=== PATIENT | female | born 1960 | race Caucasian/White ===

== ENCOUNTER 2017-10-21 22:30 | Observation (INO) | payer OTHER, MEDICAID ==
[2017-10-21] MEDS ORDERED: BUSP10TA PO (23:27)
[2017-10-21] MEDS ORDERED: Folic Acid (23:36)
[2017-10-21] MEDS ORDERED: Iron Supplement (23:36)
[2017-10-21] MEDS ORDERED: FLUT1SPR5 EACH NARE (23:36)
[2017-10-21] MEDS ORDERED: PHEN100C PO (23:36)
[2017-10-21] MEDS ORDERED: PALI117P IM (23:36)
[2017-10-21] MEDS ORDERED: PHENO60 PO (23:36)
[2017-10-21] MEDS ORDERED: TOPI100 PO (23:36)
[2017-10-21] MEDS ORDERED: CLAR10CA3 PO (23:36)
[2017-10-21] MEDS ORDERED: FLUT50SP EACH NARE (23:54)
[2017-10-21] MEDS ORDERED: PROM6.254 PO (23:54)
[2017-10-21] MEDS ORDERED: OMEP40CA2 (23:54)
[2017-10-22 01:10] VITALS: BP 133/86; PULSE 91; RESP 20; TEMP 97.4; O2SAT 100
[2017-10-22] MEDS ORDERED: ACETAMINOPHEN/HYDROcodone 325 MG/5 MG TAB PO PRN (01:45)
[2017-10-22] MEDS ORDERED: ACETAMINOPHEN 325 MG TAB PO PRN (01:45)
[2017-10-22] MEDS ORDERED: ONDANSETRON HCL 4 MG/2 ML VIAL IVP PRN (01:45)
[2017-10-22] MEDS ORDERED: SODIUM CHLORIDE 0.9% FLUSH 10 ML FLUSH IV FLUSH PRN (01:45)
[2017-10-22 04:00] VITALS: BP 118/65; PULSE 82; RESP 14; TEMP 98; O2SAT 97
[2017-10-22 06:34] LABS: BASOPHIL % 0.5 % (0.0-2.0); EOSINOPHIL # 0.1 TH/MM3 (0-0.4); EOSINOPHIL % 1.3 % (0.0-4.0); HEMATOCRIT 37.8 % (35.0-46.0); HEMOGLOBIN 12.7 GM/DL (11.6-15.3); LYMPH % 21.1 % (9.0-44.0); LYMPHOCYTE # 1.8 TH/MM3 (1.0-4.8); MEAN CELL VOLUME 91.2 FL (80.0-100.0); MEAN CORPUSCULAR HEMOGLOBIN 30.6 PG (27.0-34.0); MEAN CORPUSCULAR HGB CONC 33.6 % (32.0-36.0); MEAN PLATELET VOLUME 7.2 FL (7.0-11.0); MONO % 7.1 % (0.0-8.0); MONOCYTE # 0.6 TH/MM3 (0-0.9); PLATELET COUNT 273 TH/MM3 (150-450); RED BLOOD COUNT 4.14 MIL/MM3 (4.00-5.30); RED CELL DISTRIBUTION WIDTH 12.3 % (11.6-17.2); WHITE BLOOD COUNT 8.5 TH/MM3 (4.0-11.0)
[2017-10-22 06:43] LABS: CHLORIDE 112 MEQ/L (98-107); SODIUM (NA) 144 MEQ/L (136-145)
[2017-10-22 06:50] LABS: ALBUMIN 3.4 GM/DL (3.4-5.0); BICARBONATE 26.4 MEQ/L (21.0-32.0); CALCIUM 8.7 MG/DL (8.5-10.1); GLUCOSE,RANDOM 91 MG/DL (74-106)
[2017-10-22 06:51] LABS: BLOOD UREA NITROGEN 3 MG/DL (7-18)
[2017-10-22 06:53] LABS: ALT (GPT) 29 U/L (10-53)
[2017-10-22 06:54] LABS: AST (GOT) 11 U/L (15-37); CREATININE 0.51 MG/DL (0.50-1.00); GLOMERULAR FILTRATION RATE 125 ML/MIN (>89)
[2017-10-22 06:55] LABS: TOTAL BILIRUBIN ADULT 0.3 MG/DL (0.2-1.0); TOTAL PROTEIN 7.3 GM/DL (6.4-8.2)
[2017-10-22 06:56] LABS: ALKALINE PHOSPHATASE 166 U/L (45-117)
[2017-10-22] MEDS ORDERED: SODIUM CHLORIDE 0.9% FLUSH 10 ML FLUSH IV FLUSH SCH (09:00)
[2017-10-22] MEDS ORDERED: PANTOPRAZOLE SOD 40 MG DELAYED RELEASE TAB PO SCH (09:15)
[2017-10-22] MEDS ORDERED: TOPIRAMATE 100 MG TAB PO SCH (09:15)
[2017-10-22] MEDS ORDERED: CIPR250T52 PO (09:27)
--- NOTE | 2017-10-22 09:27 | HHI.DCPOC ---
Discharge Care Plan Diagnosis: (1) Urinary tract infection Goals to Promote Your Health * To prevent worsening of your condition and complications * To maintain your health at the optimal level Directions to Meet Your Goals Take your medications as prescribed Follow your dietary instruction Follow activity as directed Keep your appointments as scheduled Take your immunizations and boosters as scheduled If your symptoms worsen call your PCP, if no PCP go to Urgent Care Center or Emergency Room Smoking is Dangerous to Your Health. Avoid second hand smoke Call the 24-hour hour crisis hotline for domestic abuse at Abisai Castro Oct 22, 2017 09:27
--- NOTE | 2017-10-22 09:36 | HHI.HP ---
[facility] Non-Staff Admission Diagnosis Diagnoses: (1) Urinary tract infection Diagnosis: Principal (2) Vomiting Diagnosis: Principal Chief Complaint: Vomiting Travel History International Travel<30 Days: No Contact w/Intl Traveler <30 Da: No History of Present Illness 57-year-old female with known history of gastroesophageal reflux, seizure disorder, bipolar disorder who presented to hospital because of sore throat, vomiting, abdominal pain. Patient was in her normal state of health then she went to her psychiatrist's office yesterday. Then afterwards she started developing a cough in which she coughed until she vomited. Her sister indicates that this happens quite frequently. However she started developing a sore throat and some abdominal discomfort. He went to the emergency department for evaluation and had workup performed which did indicate rather large gallstone without any obstruction, urinary tract infection. Laboratory studies were unremarkable. Patient was recommended observation in the hospital. Upon seeing the patient this morning her symptoms are completely resolved and she is asking to go home. Review of Systems Respiratory: COMPLAINS OF: Cough Gastrointestinal: COMPLAINS OF: Abdominal pain, Vomiting Except as stated in HPI: all other systems reviewed are Neg Past Family Social History Past Medical History Gastroesophageal reflux Seizure disorder Bipolar disorder Past Surgical History Left shoulder surgery Reported Medications Reported Meds & Active Scripts Active Cipro (Ciprofloxacin HCl) 250 Mg Tab 250 Mg PO BID 3 Days Reported Omeprazole 40 Mg Cap 40 Mg DAILY Fluticasone Nasal [place] 50 Mcg/Act Naspr 50 Mcg EACH NARE BID 50 mcg/spray Promethazine Liq (Promethazine HCl) 6.25 Mg/5 Ml Syrp 6.25 Mg PO Q6H PRN [Folic Acid] [Iron Supplement] Claritin (Loratadine) 10 Mg Cap 10 Mg PO DAILY Flonase Nasal [place] (Fluticasone Nasal [place]) 50 Mcg/Act [place] 100 Mcg EACH NARE BID Invega Sustenna Inj (Paliperidone Palmitate) 117 Mg/0.75 Ml Inj 117 Mg IM Q28D Topamax (Topiramate) 100 Mg Tab 100 Mg PO BID Phenytoin Extended 100 Mg Cap 100 Mg PO TID Phenobarbital 64.8 Mg Tab 64.8 Mg PO BID Buspirone (Buspirone HCl) 10 Mg Tab 10 Mg PO TID Allergies: Coded Allergies: No Known Allergies (Verified Allergy, Unknown, 10/22/17) Family History Review significant for mother with diabetes and Alzheimer's. Father with diabetes Social History Patient denies any tobacco, alcohol or illicit drug Physical Exam Vital Signs Vital Signs Date Time Temp Pulse Resp B/P (MAP) Pulse Ox O2 Delivery O2 Flow Rate FiO2 10/22/17 04:00 98.0 82 14 118/65 (82) 97 10/22/17 01:10 97.4 91 20 133/86 (102) 100 Physical Exam GENERAL: Well-developed, well-nourished, in no acute distress. alert and orientated HEENT: Head is normocephalic without any lesions or masses noted. Facial features are symmetric. Eyes: Pupils equal round reactive to light. Extraocular muscles are intact. Conjunctivae were clear. Oropharyngeal: Pharynx without any erythema edema. Tongue is midline without deviation. Buccal mucosa is moist without any masses or lesions NECK: Supple without any masses. Trachea midline no deviation. No JVD, no bruits are appreciated CARDIAC: Regular rhythm, regular rate. S1/S2 are heard. No murmurs gallops or rubs. LUNGS: Clear to auscultation bilaterally. No wheeze, rhonchi or rales. No use of accessory muscles on inspiration or expiration. ABDOMEN: Soft, nontender. Nondistended. Bowel sounds heard in all 4 quadrants. No organomegaly or masses. Negative rebound, negative guarding EXTREMITIES: No edema, pulses are equal bilaterally. No cyanosis or clubbing NEUROLOGY: Mood and affect appear appropriate. Cranial nerves II through XII grossly intact. Muscle strength 5/5 in upper and lower extremities bilaterally. Deep tendon reflexes are 2+ in upper and lower extremities bilaterally. Laboratory Laboratory Tests Test 10/22/17 05:53 White Blood Count 8.5 Red Blood Count 4.14 Hemoglobin 12.7 Hematocrit 37.8 Mean Corpuscular Volume 91.2 Mean Corpuscular Hemoglobin 30.6 Mean Corpuscular Hemoglobin Concent 33.6 Red Cell Distribution Width 12.3 Platelet Count 273 Mean Platelet Volume 7.2 Neutrophils (%) (Auto) 70.0 Lymphocytes (%) (Auto) 21.1 Monocytes (%) (Auto) 7.1 Eosinophils (%) (Auto) 1.3 Basophils (%) (Auto) 0.5 Neutrophils # (Auto) 6.0 Lymphocytes # (Auto) 1.8 Monocytes # (Auto) 0.6 Eosinophils # (Auto) 0.1 Basophils # (Auto) 0.0 CBC Comment DIFF FINAL Differential Comment Blood Urea Nitrogen 3 Creatinine 0.51 Random Glucose 91 Total Protein 7.3 Albumin 3.4 Calcium Level 8.7 Alkaline Phosphatase 166 Aspartate Amino Transf (AST/SGOT) 11 Alanine Aminotransferase (ALT/SGPT) 29 Total Bilirubin 0.3 Sodium Level 144 Potassium Level 3.9 Chloride Level 112 Carbon Dioxide Level 26.4 Anion Gap 6 Estimat Glomerular Filtration Rate 125 Result Diagram: 10/22/17 0553 10/22/17 0553 Caprini VTE Risk Assessment Caprini VTE Risk Assessment: No/Low Risk (score <= 1) Caprini Risk Assessment Model Point Value = 1 Point Value = 2 Point Value = 3 Point Value = 5 Age 41-60 Minor surgery BMI > 25 kg/m2 Swollen legs Varicose veins or History of unexplained or recurrent spontaneous Oral contraceptives or hormone replacement Sepsis (< 1 month) Serious lung disease, including pneumonia (< 1 month) Abnormal pulmonary function Acute myocardial infarction Congestive heart failure (< 1 month) History of inflammatory bowel disease Medical patient at bed rest Age 61-74 Arthroscopic surgery Major open surgery (> 45 min) Laparoscopic surgery (> 45 min) Malignancy Confined to bed (> 72 hours) Immobilizing plaster cast Central venous access Age >= 75 History of VTE Family history of VTE Factor V Leiden Prothrombin [id number] Lupus anticoagulant Anticardiolipin antibodies Elevated serum homocysteine Heparin-induced thrombocytopenia Other congenital or acquired thrombophilia Stroke (< 1 month) Elective arthroplasty Hip, pelvis, or leg fracture Acute spinal cord injury (< 1 month) Prophylaxis Regimen Total Risk Factor Score Risk Level Prophylaxis Regimen 0-1 Low Early ambulation 2 Moderate Order ONE of the following: *Sequential Compression Device (SCD) *Heparin 5000 units SQ BID 3-4 Higher Order ONE of the following medications: *Heparin 5000 units SQ TID *Enoxaparin/Lovenox 40 mg SQ daily (WT < 150 kg, CrCl > 30 mL/min) *Enoxaparin/Lovenox 30 mg SQ daily (WT < 150 kg, CrCl > 10-29 mL/min) *Enoxaparin/Lovenox 30 mg SQ BID (WT < 150 kg, CrCl > 30 mL/min) AND/OR *Sequential Compression Device (SCD) 5 or more Highest Order ONE of the following medications: *Heparin 5000 units SQ TID (Preferred with Epidurals) *Enoxaparin/Lovenox 40 mg SQ daily (WT < 150 kg, CrCl > 30 mL/min) *Enoxaparin/Lovenox 30 mg SQ daily (WT < 150 kg, CrCl > 10-29 mL/min) *Enoxaparin/Lovenox 30 mg SQ BID (WT < 150 kg, CrCl > 30 mL/min) AND *Sequential Compression Device (SCD) Assessment and Plan Assessment and Plan 57-year-old female who presented with vomiting after coughing, sore throat and abdominal discomfort Urinary tract infection -Urinalysis does show pyuria, leukuria, however does have increased squamous epithelial cells which could indicate contamination -Patient started on Rocephin -Follow urine culture -Start patient on Cipro 250 mg twice daily for 3 days Cholelithiasis -Laboratory studies do not show any obstructive process, patient is asymptomatic -CT scan does not indicate any obstruction -Discussed with family and patient that there is no signs of any acute cholecystitis, if she has any recurrent symptoms, she should follow-up for possible elective cholecystectomy Sore throat -Strep screen was unremarkable -Could have been secondary to coughing and vomiting Seizure disorder -Continue home medications Bipolar disorder -Continue home medications DVT prevention -Sequential compression devices Discharge disposition Discharge home in stable condition Activity: Ad jose. Diet: Regular diet Medication per medication reconciliation Follow-up with primary medical doctor in 1 week Abisai Castro Oct 22, 2017 09:36
[2017-10-22] MEDS ORDERED: PHENobarbital 32.4 MG TAB PO SCH (11:00)
[2017-10-22] MEDS ORDERED: busPIRone HCL 10 MG TAB PO SCH (13:00)
[2017-10-22] MEDS ORDERED: PHENYTOIN SODIUM 100 MG CAP PO SCH (13:00)
[2017-10-22] MEDS ORDERED: cefTRIAXone INJ 1,000 MG in SODIUM CHLORIDE 0.9% INJ 100 ML IV SCH (22:00)
== END 2017-10-22 09:51 | disposition home or self-care (01) ==
LOC: PHEDDLT 10-22 00:50 → PH3A 10-22 01:00
PROVIDERS: ADMIT Hospitalist; ATTEND Hospitalist
DX: N39.0 Urinary tract infection, site not specified (principal); R11.10 Vomiting, unspecified; K21.9 Gastro-esophageal reflux disease without esophagitis; G40.909 Epilepsy, unspecified, not intractable, without status epilepticus; F31.9 Bipolar disorder, unspecified; J02.9 Acute pharyngitis, unspecified; R05 Cough; Z83.3 Family history of diabetes mellitus; Z82.0 Family history of epilepsy and other diseases of the nervous system
CPT/HCPCS: 74177; 80053; 81001; 83690; 85007; 85025; 85027; 87081; 87086; 87880; 96361; 96365; 96374; 96375; 99285; G0378; J0696; J2405; J7030; Q9967